=== PATIENT | female | born 2000 | race Caucasian/White ===

== ENCOUNTER 2024-12-11 08:33 | Inpatient (IN) | payer OTHER, BC ==
[~2024-12-11] VITALS: Ht 165.1 cm; Wt 54.9 kg
[2024-12-11] MEDS ORDERED: AMPH20CA PO (08:51)
[2024-12-11] MEDS ORDERED: [UNRECOGNIZED DRUG - CODE] PO (08:51)
[2024-12-11 08:57] LABS: COVID AG,FIA SOURCE NASAL SWAB
[2024-12-11 09:07] LABS: PLATELET COUNT (AUTO) 197 K/uL (150-450); RED BLOOD CELL COUNT(AUTO) 3.88 MIL/uL (4.00-5.20); RED CELL DISTRIBUTION WIDTH 12.7 % (11.5-14.5); WHITE BLOOD COUNT (AUTO) 7.9 K/uL (4.5-11.0)
[2024-12-11 09:31] LABS: CALCIUM, TOTAL 8.4 mg/dL (8.8-10.5); CREATININE 0.83 mg/dL (0.60-1.30); GLOMERULAR FILTR. RATE CALC > 60 mL/min (>60); GLUCOSE,RANDOM 110 mg/dL (70-110); SODIUM SERUM 137 mmol/L (136-145)
[2024-12-11 09:34] LABS: ASPARTATE AMINOTRANSFERASE 112 U/L (15-37); HCG,QUANTITATIVE < 1 mIU/mL (0-6); TOTAL PROTEIN, SERUM 7.1 g/dL (6.4-8.2)
[2024-12-11 09:51] LABS: INFLUENZA TYPE A NEGATIVE FOR TYPE A (NEGATIVE); INFLUENZA TYPE B NEGATIVE FOR TYPE B (NEGATIVE)
[2024-12-11 09:52] LABS: SARS-COV2 (COVID) ANTIGEN,FIA Negative (Negative)
[2024-12-11 10:11] LABS: UREA NITROGEN, BLOOD 6 mg/dL (7-18)
[2024-12-11] MEDS: SODIUM CHLORIDE 0.9% 1,000 ML IV ONE ×2 (10:28→12:50)
[2024-12-11] MEDS: ONDANSETRON HCL 4 MG/2 ML VIAL IVP ONE (10:33)
[2024-12-11 15:00] VITALS: TEMP 99.3
[2024-12-11 15:38] VITALS: BP 116/78; PULSE 90; RESP 18; TEMP 98.4; O2SAT 97
[2024-12-11 16:36] VITALS: BP 116/78; PULSE 97; RESP 18; TEMP 98.4; O2SAT 97
[2024-12-11] MEDS: ACETAMINOPHEN 325 MG TABLET PO PRN (17:39)
[2024-12-11] MEDS: ONDANSETRON HCL 4 MG/2 ML VIAL IVP PRN (18:05)
[2024-12-11 20:08] VITALS: BP 104/65; PULSE 77; RESP 20; TEMP 98.6; O2SAT 98
[2024-12-11] MEDS: DOCUSATE SODIUM 100 MG CAPSULE PO SCH (20:13)
[2024-12-11] MEDS ORDERED: POTASSIUM CHL 10 MEQ/WATER 50 ML IV PRN (22:15)
[2024-12-11] MEDS: POTASSIUM CHLORIDE 20 MEQ ER TABLET PO PRN (22:39)
[2024-12-12] MEDS: MORPHINE SULFATE 2 MG/ML SYRINGE IVP PRN (00:31)
[2024-12-12 04:00] VITALS: BP 107/65; PULSE 90; RESP 18; TEMP 98.4; O2SAT 97
[2024-12-12 08:00] VITALS: BP 109/77; PULSE 81; RESP 20; TEMP 98.2; O2SAT 97
[2024-12-12] MEDS: SODIUM CHLORIDE 0.9% 1,000 ML IV ONE ×2 (09:09→13:17)
[2024-12-12 09:12] LABS: ASPARTATE AMINOTRANSFERASE 164 U/L (15-37); CALCIUM, TOTAL 7.9 mg/dL (8.8-10.5); CREATININE 0.72 mg/dL (0.60-1.30); GLOMERULAR FILTR. RATE CALC > 60 mL/min (>60); GLUCOSE,RANDOM 84 mg/dL (70-110); SODIUM SERUM 136 mmol/L (136-145); TOTAL PROTEIN, SERUM 6.3 g/dL (6.4-8.2); UREA NITROGEN, BLOOD 4 mg/dL (7-18)
[2024-12-12] MEDS: PANTOPRAZOLE SODIUM 40 MG/VIAL IVP SCH (09:22)
[2024-12-12] MEDS ORDERED: RINGERS SOLUTION,LACTATED 0 ML IV ONE (10:38)
[2024-12-12] MEDS ORDERED: SODIUM CHLORIDE 0.9% 1,000 ML ONE (12:13)
[2024-12-12 12:40] LABS: PH,URINE DRUG SCREEN 6.5 (5.0-8.0)
[2024-12-12 12:51] LABS: ALCOHOL, URINE DRUG SCREEN NEGATIVE (NEGATIVE); AMPHET/METH SCREEN,URINE NEGATIVE (NEGATIVE); BARBITURATE SCREEN, URINE NEGATIVE (NEGATIVE); CANNABINOID SCREEN,URINE POSITIVE (NEGATIVE); COCAINE SCREEN,URINE NEGATIVE (NEGATIVE); METHADONE SCREEN, URINE NEGATIVE (NEGATIVE)
[2024-12-12] MEDS: ETHYL ALCOHOL 62% ANTISEPTIC NASAL SANITIZER 0.6 ML AMPUL NASAL ONE (13:16)
[2024-12-12] MEDS: CHLORHEXIDINE GLUCONATE 2% TOWELETTE [2'S/6'S] TP ONE (13:16)
[2024-12-12 13:55] VITALS: BP 118/71; PULSE 87; RESP 17; TEMP 98.3; O2SAT 98
[2024-12-12] MEDS ORDERED: NALOXONE HCL 0.4 MG/ML VIAL ONE (14:00)
[2024-12-12] MEDS ORDERED: SODIUM TETRADECYL SULFATE 3% 60 MG/2 ML VIAL IVP ONE (14:00)
[2024-12-12] MEDS ORDERED: FLUMAZENIL 0.1 MG/ML 5 ML VIAL IVP ONE (14:00)
[2024-12-12] MEDS ORDERED: IOTHALAMATE MEGLUMINE 600 MG/ML 50 ML VIAL IVP ONE (14:00)
[2024-12-12] MEDS ORDERED: ATROPINE SULFATE 0.1 MG/ML 10 ML SYRINGE IVP ONE (14:00)
[2024-12-12] MEDS ORDERED: RINGERS SOLUTION,LACTATED 1,000 ML IV ONE (14:00)
[2024-12-12] MEDS ORDERED: EPINEPHrine 1:10,000 [1 MG/10 ML] SYRINGE ONE (14:01)
[2024-12-12 15:43] VITALS: BP 119/75; PULSE 85; RESP 20; TEMP 97.2; O2SAT 99
[2024-12-12 20:12] VITALS: BP 125/78; PULSE 86; RESP 18; TEMP 98.2; O2SAT 100
[2024-12-13 02:19] VITALS: BP 102/67; PULSE 80; RESP 20; TEMP 98.1; O2SAT 97
[2024-12-13] MEDS: MORPHINE SULFATE 2 MG/ML SYRINGE IVP ONE ×3 (02:25→20:14)
[2024-12-13 07:01] LABS: ASPARTATE AMINOTRANSFERASE 313 U/L (15-37); CALCIUM, TOTAL 8.1 mg/dL (8.8-10.5); CREATININE 0.70 mg/dL (0.60-1.30); GLOMERULAR FILTR. RATE CALC > 60 mL/min (>60); GLUCOSE,RANDOM 90 mg/dL (70-110); SODIUM SERUM 134 mmol/L (136-145); TOTAL PROTEIN, SERUM 6.1 g/dL (6.4-8.2); UREA NITROGEN, BLOOD 5 mg/dL (7-18)
[2024-12-13 09:19] VITALS: BP 106/63; PULSE 81; RESP 20; TEMP 99.1; O2SAT 97
[2024-12-13] MEDS: SODIUM CHLORIDE 0.9% 1,000 ML IV ONE ×2 (10:24→13:45)
[2024-12-13 11:15] LABS: APPEARANCE,URINE CLEAR (CLEAR); GLUCOSE, URINE (UA) NEGATIVE (NEGATIVE); LEUKOCYTE ESTERASE ,URINE NEGATIVE (NEGATIVE); NITRATE,URINE NEGATIVE (NEGATIVE); OCCULT BLOOD,URINE MODERATE (NEGATIVE); SPECIFIC GRAVITIY, URINE 1.017 (1.003-1.030)
[2024-12-13] MEDS: PIPERACILLIN/TAZO 3.375 GM/D5W 50 ML IV SCH (11:43)
[2024-12-13 12:18] LABS: SQUAMOUS EPITHELIAL CELL,UR Few /LPF (None Seen)
[2024-12-13] MEDS ORDERED: SODIUM CHLORIDE 0.9% 1,000 ML ONE (12:27)
[2024-12-13] MEDS ORDERED: MIDAZOLAM HCL 2 MG/2 ML VIAL ONE (15:57)
[2024-12-13] MEDS ORDERED: FentaNYL CITRATE PF 100 MCG/2 ML VIAL ONE (15:57)
[2024-12-13] MEDS ORDERED: MORPHINE SULFATE 2 MG/ML SYRINGE IVP PRN (17:30)
[2024-12-13 18:38] VITALS: BP 113/64; PULSE 65; RESP 20; TEMP 97.5; O2SAT 100
[2024-12-13 19:39] VITALS: BP 115/68; PULSE 62; RESP 20; TEMP 97.2; O2SAT 100
[2024-12-13 20:00] VITALS: BP 111/72; PULSE 69; RESP 18; TEMP 98.2; O2SAT 99
[2024-12-13] MEDS ORDERED: IOHEXOL 350 MG/ML 100 ML VIAL ONE (22:30)
[2024-12-13] MEDS ORDERED: SODIUM CHLORIDE 0.9% 100 ML ONE (22:30)
[2024-12-13] MEDS ORDERED: NALOXONE HCL 1 MG/ML 2 ML SYRINGE IVP PRN (22:30)
[2024-12-13 23:04] LABS: CALCIUM, TOTAL 7.7 mg/dL (8.8-10.5); CREATININE 0.73 mg/dL (0.60-1.30); GLOMERULAR FILTR. RATE CALC > 60 mL/min (>60); GLUCOSE,RANDOM 119 mg/dL (70-110); SODIUM SERUM 133 mmol/L (136-145); UREA NITROGEN, BLOOD 8 mg/dL (7-18)
[2024-12-13 23:08] LABS: ASPARTATE AMINOTRANSFERASE 309 U/L (15-37); TOTAL PROTEIN, SERUM 6.4 g/dL (6.4-8.2)
[2024-12-13 23:20] LABS: PLATELET COUNT (AUTO) 220 K/uL (150-450); RED BLOOD CELL COUNT(AUTO) 3.67 MIL/uL (4.00-5.20); RED CELL DISTRIBUTION WIDTH 13.0 % (11.5-14.5); WHITE BLOOD COUNT (AUTO) 15.1 K/uL (4.5-11.0)
[2024-12-13] MEDS: PANTOPRAZOLE SODIUM 40 MG/VIAL IVP SCH (23:56)
[2024-12-13] MEDS: RINGERS SOLUTION,LACTATED 500 ML IV ONE (23:57)
[2024-12-14 00:15] VITALS: BP 119/77; PULSE 76; RESP 18; TEMP 98.2; O2SAT 100
[2024-12-14] MEDS ORDERED: RINGERS SOLUTION,LACTATED 1,000 ML IV ONE (01:15)
[2024-12-14] MEDS: DEXTROSE 5%-LACTATED RINGERS 1,000 ML IV ONE (04:09)
[2024-12-14 04:21] VITALS: BP 122/80; PULSE 87; RESP 19; TEMP 98.4; O2SAT 99
[2024-12-14 07:01] LABS: CALCIUM, TOTAL 7.6 mg/dL (8.8-10.5); CREATININE 0.73 mg/dL (0.60-1.30); GLOMERULAR FILTR. RATE CALC > 60 mL/min (>60); GLUCOSE,RANDOM 115 mg/dL (70-110); SODIUM SERUM 132 mmol/L (136-145); UREA NITROGEN, BLOOD 5 mg/dL (7-18)
[2024-12-14 07:09] LABS: PLATELET COUNT (AUTO) 216 K/uL (150-450); RED BLOOD CELL COUNT(AUTO) 3.60 MIL/uL (4.00-5.20); RED CELL DISTRIBUTION WIDTH 12.8 % (11.5-14.5); WHITE BLOOD COUNT (AUTO) 17.3 K/uL (4.5-11.0)
[2024-12-14 07:16] LABS: CHOL/HDL RATIO 7.2 (3.9-5.7); LDL CHOL (CALC.) 89.0 mg/dL (0-130)
[2024-12-14 07:56] VITALS: BP_SYST 10; BP_SYST 120; BP_DIAS 64; PULSE 93; RESP 16; TEMP 98.4; O2SAT 99
[2024-12-14] MEDS ORDERED: SODIUM CHLORIDE 0.9% 1,000 ML ONE ×2 (08:18→08:25)
[2024-12-14] MEDS: CHLORHEXIDINE GLUCONATE 2% TOWELETTE [2'S/6'S] TP ONE (08:32)
[2024-12-14] MEDS: ETHYL ALCOHOL 62% ANTISEPTIC NASAL SANITIZER 0.6 ML AMPUL NASAL ONE (08:32)
[2024-12-14 09:41] LABS: BAND NEUTROPHILS % (MANUAL) 0 % (0-5)
[2024-12-14 09:42] LABS: LYMPHOCYTES % (MANUAL) 34 % (22-44); MONOCYTES % (MANUAL) 8 % (2-9); REACTIVE LYMPHOCYTES 5 % (0-0); SEGMENTED NEUTROPHILS % 53 % (40-70)
[2024-12-14] MEDS: SODIUM CHLORIDE 0.9% 1,000 ML IV SCH (12:03)
[2024-12-14] MEDS: BUPIVACAINE 0.25%/EPI 1:200,000/PF 10 ML VIAL ONE (14:15)
[2024-12-14] MEDS ORDERED: MIDAZOLAM HCL 2 MG/2 ML VIAL ONE (15:49)
[2024-12-14] MEDS ORDERED: FentaNYL CITRATE PF 100 MCG/2 ML VIAL ONE (15:49)
[2024-12-14 16:00] VITALS: BP 129/68; PULSE 96; RESP 15; TEMP 97.5; O2SAT 97
[2024-12-14 20:25] VITALS: BP 125/78; PULSE 108; RESP 16; TEMP 100.4; O2SAT 96
[2024-12-14] MEDS: HEPARIN SODIUM,PORCINE 5,000 UNITS/ML VIAL SQ SCH (21:02)
[2024-12-14 23:39] VITALS: BP 130/81; PULSE 120; RESP 16; TEMP 100.2; O2SAT 97
[2024-12-15 03:54] VITALS: BP 117/76; PULSE 112; RESP 18; TEMP 100.9; O2SAT 98
[2024-12-15 07:49] VITALS: BP 118/71; PULSE 115; RESP 15; TEMP 100.4; O2SAT 98
[2024-12-15 10:15] LABS: PLATELET COUNT (AUTO) 212 K/uL (150-450); RED BLOOD CELL COUNT(AUTO) 3.50 MIL/uL (4.00-5.20); RED CELL DISTRIBUTION WIDTH 13.3 % (11.5-14.5); WHITE BLOOD COUNT (AUTO) 14.9 K/uL (4.5-11.0)
[2024-12-15 10:31] LABS: ASPARTATE AMINOTRANSFERASE 97 U/L (15-37); CALCIUM, TOTAL 6.6 mg/dL (8.8-10.5); CREATININE 0.68 mg/dL (0.60-1.30); GLOMERULAR FILTR. RATE CALC > 60 mL/min (>60); GLUCOSE,RANDOM 106 mg/dL (70-110); SODIUM SERUM 132 mmol/L (136-145); TOTAL PROTEIN, SERUM 5.1 g/dL (6.4-8.2); UREA NITROGEN, BLOOD 4 mg/dL (7-18)
[2024-12-15 11:00] LABS: BAND NEUTROPHILS % (MANUAL) 0 % (0-5)
[2024-12-15 11:01] LABS: LYMPHOCYTES % (MANUAL) 31 % (22-44); MONOCYTES % (MANUAL) 11 % (2-9); REACTIVE LYMPHOCYTES 5 % (0-0); SEGMENTED NEUTROPHILS % 53 % (40-70)
[2024-12-15 12:36] VITALS: BP 121/81; PULSE 120; RESP 18; TEMP 99; O2SAT 98
[2024-12-15 17:15] VITALS: BP 16/84; PULSE 125; RESP 18; TEMP 103.1; O2SAT 97
[2024-12-15 18:20] VITALS: TEMP 99.3
[2024-12-15 20:00] VITALS: BP 110/69; PULSE 95; RESP 20; TEMP 98.2
[2024-12-15 22:28] LABS: INFLUENZA A-RTPCR,COMBO NEGATIVE (NEGATIVE); INFLUENZA B-RTPCR,COMBO NEGATIVE (NEGATIVE); RESPIRATORY SYNCYTIAL VRS-PCR NEGATIVE (NEGATIVE); SARS COVID19 RTPCR, COMBO NEGATIVE (NEGATIVE)
[2024-12-16] VITALS (7 sets, daily range): BP systolic 110–123; BP diastolic 63–75; PULSE 78–114; RESP 18–20; TEMP 97.7–99.7; O2SAT 97–99
[2024-12-16] MEDS ORDERED: DEXAMETHASONE SOD PHOS 4 MG/ML VIAL IVP ONE ×2 (07:55→08:05)
[2024-12-16] MEDS ORDERED: PROPOFOL 1% 20 ML VIAL IVP ONE ×2 (07:55→08:05)
[2024-12-16] MEDS ORDERED: SUGAMMADEX SODIUM 200 MG/2 ML VIAL IVP ONE (07:55)
[2024-12-16] MEDS ORDERED: ROCURONIUM BROMIDE 10 MG/ML 5 ML VIAL IVP ONE ×2 (07:55→08:05)
[2024-12-16] MEDS ORDERED: ONDANSETRON HCL 4 MG/2 ML VIAL IVP ONE ×2 (07:55→08:05)
[2024-12-16] MEDS ORDERED: KETOROLAC TROMETHAMINE 60 MG/2 ML VIAL IM ONE (08:05)
[2024-12-16] MEDS ORDERED: GLUCAGON,HUMAN RECOMBINANT 1 MG VIAL IVP ONE (08:05)
[2024-12-16 08:41] LABS: PLATELET COUNT (AUTO) 249 K/uL (150-450); RED BLOOD CELL COUNT(AUTO) 3.65 MIL/uL (4.00-5.20); RED CELL DISTRIBUTION WIDTH 13.3 % (11.5-14.5); WHITE BLOOD COUNT (AUTO) 13.7 K/uL (4.5-11.0)
[2024-12-16 08:58] LABS: ASPARTATE AMINOTRANSFERASE 74 U/L (15-37); CALCIUM, TOTAL 7.5 mg/dL (8.8-10.5); CREATININE 0.62 mg/dL (0.60-1.30); GLOMERULAR FILTR. RATE CALC > 60 mL/min (>60); GLUCOSE,RANDOM 104 mg/dL (70-110); SODIUM SERUM 132 mmol/L (136-145); TOTAL PROTEIN, SERUM 5.8 g/dL (6.4-8.2); UREA NITROGEN, BLOOD 5 mg/dL (7-18)
[2024-12-17 04:00] VITALS: BP 104/60; PULSE 95; RESP 18; TEMP 98.3; O2SAT 98
[2024-12-17 09:37] LABS: PLATELET COUNT (AUTO) 253 K/uL (150-450); RED BLOOD CELL COUNT(AUTO) 3.35 MIL/uL (4.00-5.20); RED CELL DISTRIBUTION WIDTH 13.2 % (11.5-14.5); WHITE BLOOD COUNT (AUTO) 11.1 K/uL (4.5-11.0)
[2024-12-17 10:20] LABS: ASPARTATE AMINOTRANSFERASE 42 U/L (15-37); CALCIUM, TOTAL 7.7 mg/dL (8.8-10.5); CREATININE 0.57 mg/dL (0.60-1.30); GLOMERULAR FILTR. RATE CALC > 60 mL/min (>60); GLUCOSE,RANDOM 109 mg/dL (70-110); SODIUM SERUM 133 mmol/L (136-145); TOTAL PROTEIN, SERUM 5.6 g/dL (6.4-8.2); UREA NITROGEN, BLOOD 2 mg/dL (7-18)
[2024-12-17 12:00] VITALS: BP 113/64; PULSE 99; RESP 18; TEMP 98.3; O2SAT 99
[2024-12-17 14:57] VITALS: BP 110/64; PULSE 101; RESP 18; TEMP 98; O2SAT 98
[2024-12-17 19:44] VITALS: BP 117/73; PULSE 102; RESP 18; TEMP 100.2; O2SAT 100
[2024-12-18 00:06] VITALS: BP 125/79; PULSE 89; RESP 18; TEMP 97.7; O2SAT 99
[2024-12-18 05:27] VITALS: BP 110/73; PULSE 94; RESP 15; TEMP 98.6; O2SAT 99
[2024-12-18 06:53] LABS: PLATELET COUNT (AUTO) 279 K/uL (150-450); RED BLOOD CELL COUNT(AUTO) 3.16 MIL/uL (4.00-5.20); RED CELL DISTRIBUTION WIDTH 13.4 % (11.5-14.5); WHITE BLOOD COUNT (AUTO) 10.0 K/uL (4.5-11.0)
[2024-12-18 07:22] VITALS: BP 113/73; PULSE 87; RESP 16; TEMP 98.8; O2SAT 96
[2024-12-18 07:25] LABS: ASPARTATE AMINOTRANSFERASE 51 U/L (15-37); CALCIUM, TOTAL 7.8 mg/dL (8.8-10.5); CREATININE 0.67 mg/dL (0.60-1.30); GLOMERULAR FILTR. RATE CALC > 60 mL/min (>60); GLUCOSE,RANDOM 94 mg/dL (70-110); SODIUM SERUM 133 mmol/L (136-145); TOTAL PROTEIN, SERUM 5.5 g/dL (6.4-8.2); UREA NITROGEN, BLOOD 2 mg/dL (7-18)
[2024-12-18 10:56] VITALS: BP 117/78; PULSE 96; RESP 16; TEMP 98.8; O2SAT 100
== END 2024-12-18 13:05 | disposition home or self-care (01) | DRG 417 ==
LOC: EMS 08:36 → EDH 12:40 → 6S 15:17 → 5S 12-13 23:20
PROVIDERS: ADMIT Internal Medicine; ATTEND Internal Medicine
PROC: 0F798DZ Dilation of Common Bile Duct with Intraluminal Device, Via Natural or Artificial Opening Endoscopic (ICD-10-PCS; 2024-12-13)
PROC: BF101ZZ Fluoroscopy of Bile Ducts using Low Osmolar Contrast (ICD-10-PCS; 2024-12-13)
PROC: 0FT44ZZ Resection of Gallbladder, Percutaneous Endoscopic Approach (ICD-10-PCS; principal; 2024-12-14 09:00)
DX: K80.21 Calculus of gallbladder without cholecystitis with obstruction (principal); E43 Unspecified severe protein-calorie malnutrition; K85.90 Acute pancreatitis without necrosis or infection, unspecified; F17.210 Nicotine dependence, cigarettes, uncomplicated; F90.9 Attention-deficit hyperactivity disorder, unspecified type; E80.6 Other disorders of bilirubin metabolism; Z20.822 Contact with and (suspected) exposure to COVID-19; Z68.20 Body mass index [BMI] 20.0-20.9, adult
CPT/HCPCS: 71045; 74018; 74177; 74181; 76700; 80048; 80053; 80061; 80307; 81001; 82247; 82248; 83690; 84132; 84702; 85025; 87040; 87081; 87637; 87804; 88304; 93005; 96361; 96374; 99285; J0169; J0461; J1100; J1171; J1200; J1610; J1644; J1885; J2250; J2270; J2312; J2405; J2470; J2543; J2704; J3010; J3490; J7030; J7050; J7120; Q9961; 36415-L1; 36415-TC

== ENCOUNTER → 2025-02-06 | Day surgery (SDC) | payer OTHER, BC ==
[~2025-02-06] VITALS: Ht 162.6 cm; Wt 48.6 kg
[~2025-02-06] MED LIST: AMPH20CA PO; ATROPINE SULFATE 0.1 MG/ML 10 ML SYRINGE IVP ONE; DEXAMETHASONE SOD PHOS 4 MG/ML VIAL ONE; EPINEPHrine 1:10,000 [1 MG/10 ML] SYRINGE ONE; FLUMAZENIL 0.1 MG/ML 5 ML VIAL IVP ONE; FentaNYL CITRATE PF 100 MCG/2 ML VIAL ONE; IOTHALAMATE MEGLUMINE 600 MG/ML 50 ML VIAL IVP ONE; LIDOCAINE/PF 2% 5 ML VIAL ONE; MIDAZOLAM HCL 2 MG/2 ML VIAL ONE; NALOXONE HCL 0.4 MG/ML VIAL ONE; ONDANSETRON HCL 4 MG/2 ML VIAL ONE; PROPOFOL 1% 20 ML VIAL IVP ONE; ROCURONIUM BROMIDE 10 MG/ML 5 ML VIAL ONE; SODIUM CHLORIDE 0.9% 1,000 ML IV ONE; SODIUM CHLORIDE 0.9% 1,000 ML ONE; SODIUM TETRADECYL SULFATE 3% 60 MG/2 ML VIAL IVP ONE; SUGAMMADEX SODIUM 200 MG/2 ML VIAL IVP ONE; [UNRECOGNIZED DRUG - CODE] PO
[2025-02-06 11:18] LABS: PLATELET COUNT (AUTO) 285 K/uL (150-450); RED BLOOD CELL COUNT(AUTO) 4.26 MIL/uL (4.00-5.20); RED CELL DISTRIBUTION WIDTH 13.6 % (11.5-14.5); WHITE BLOOD COUNT (AUTO) 3.8 K/uL (4.5-11.0)
[2025-02-06] MEDS: SODIUM CHLORIDE 0.9% 1,000 ML IV ONE (11:21)
[2025-02-06 11:32] LABS: CALCIUM, TOTAL 8.7 mg/dL (8.8-10.5); CREATININE 0.55 mg/dL (0.60-1.30); GLOMERULAR FILTR. RATE CALC > 60 mL/min (>60); GLUCOSE,RANDOM 94 mg/dL (70-110); SODIUM SERUM 137 mmol/L (136-145); UREA NITROGEN, BLOOD 9 mg/dL (7-18)
[2025-02-06 11:36] LABS: ASPARTATE AMINOTRANSFERASE 19 U/L (15-37); TOTAL PROTEIN, SERUM 7.6 g/dL (6.4-8.2)
== END | disposition home or self-care (01) ==
LOC: SDS 10:45
PROVIDERS: ATTEND Internal Medicine Gastroenterology
DX: K86.1 Other chronic pancreatitis (principal); K83.1 Obstruction of bile duct; Z90.49 Acquired absence of other specified parts of digestive tract; Z98.890 Other specified postprocedural states
CPT/HCPCS: 43275; 88300; 80053; 84703; 85025; 85610; 85730; 36415; J2704; J0690; J1100; Q9961; J3490 ×3; J2405; J7030; J0169; J0461; J1200; J2250; J2312; J3010